=== PATIENT | female | born 1975 | race Caucasian/White ===

== ENCOUNTER 2021-01-05 18:45 | Emergency (ER) | payer OTHER ==
[~2021-01-05 18:45] MED LIST: AUGMENTIN 875-1 EACH PO; CLEOCIN HCL300 MG PO; DIFLUCAN150 MG PO; Viscous lidocaine2% TOP
== END 2021-01-05 21:47 | disposition home or self-care (01) ==
LOC: ER1 18:45
DX: U07.1 COVID-19 (principal); F17.200 Nicotine dependence, unspecified, uncomplicated
CPT/HCPCS: 71045; 99283; U0002